=== PATIENT | male | born 1980 | race Caucasian/White ===

== ENCOUNTER 2020-01-05 16:18 | Emergency (ER) | payer SELFPAY ==
[~2020-01-05] VITALS: Ht 165.1 cm; Wt 86.2 kg
[2020-01-05 16:26] VITALS: Ht 165.1 cm; Wt 86.2 kg
[2020-01-05 17:50] VITALS: BP 155/90
== END 2020-01-05 17:50 | disposition home or self-care (01) ==
LOC: ED 16:18
DX: S93.492A Sprain of other ligament of left ankle, initial encounter (principal); X50.1XXA Overexertion from prolonged static or awkward postures, initial encounter; Y93.66 Activity, soccer; Y92.89 Other specified places as the place of occurrence of the external cause; Y99.8 Other external cause status
CPT/HCPCS: J1885; Q0092